=== PATIENT | male | born 1940 | race Caucasian/White ===

== ENCOUNTER 2016-11-11 12:36 | Emergency (ER) | payer OTHER ==
[~2016-11-11] VITALS: Ht 165.1 cm; Wt 80.0 kg
[2016-11-11 15:04] LABS: HEMATOCRIT 42.9 % (38.0-50.0); MCH 31.3 PG (29.0-34.0); MCHC 33.8 G/DL (30.0-36.0); MCV 92.7 FL (86-99); MEAN PLAT.VOLUME 10.3 uM^3 (9.0-12.4); PLATELET COUNT 197 K/uL (156-360); RBC DIS.WIDTH-CV 13.5 % (11.8-14.6); RBC DIS.WIDTH-SD 44.4 % (39-53); RED BLOOD COUNT 4.63 M/uL (4.00-5.50)
[2016-11-11 15:16] LABS: CHLORIDE 102 mEq/L (99-109); POTASSIUM 3.8 mEq/L (3.7-5.4); SODIUM 137 mEq/L (136-147)
[2016-11-11 15:18] LABS: GLUCOSE 107 mg/dL (70-99)
[2016-11-11 15:19] LABS: ANION GAP 12 MEQ/L (2-14)
[2016-11-11 15:22] LABS: GFR ESTIMATE (CALCULATED) > 59 mL/min/; UREA NITROGEN (BUN) 16 mg/dL (9-23)
[2016-11-11] MEDS ORDERED: HYCODAN SYRUP480 ML PO (16:17)
[2016-11-11 16:25] VITALS: BP 131/89
== END 2016-11-11 16:29 | disposition home or self-care (01) ==
LOC: EME 12:36
DX: J06.9 Acute upper respiratory infection, unspecified (principal)
CPT/HCPCS: 71020; 80048; 85027; 99281; 99283